=== PATIENT | male | born 1970 | race Caucasian/White ===

== ENCOUNTER 2020-11-26 20:08 | Emergency (ER) | payer OTHER, SELFPAY ==
--- NOTE | ~2020-11-26 | XR_ITS ---
EXAMINATION: CHEST X-RAY CLINICAL INFORMATION: Chest pain COMPARISON: None TECHNIQUE: Frontal view of the chest was obtained. FINDINGS: Cardiac silhouette is mildly enlarged. Lungs are mildly hypoinflated. There is no lobar consolidation. No pleural effusion or pneumothorax. Minimal dependent atelectasis. No gross osseous abnormality. XR/XR chest 1V IMPRESSION: No acute pulmonary pathology.
[2020-11-26 20:37] VITALS: BP 141/86; PULSE 103; PULSE 107; RESP 22; TEMP 37; O2SAT 99; BMI 31.9
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
--- NOTE | 2020-11-26 21:06 | ECG_ITS ---
Test Reason : CHEST PAIN Blood Pressure : / mmHG Vent. Rate : 110 BPM Atrial Rate : 110 BPM P-R Int : 146 ms QRS Dur : 078 ms QT Int : 348 ms P-R-T Axes : 064 042 044 degrees QTc Int : 470 ms Sinus tachycardia Otherwise normal ECG When compared with ECG of 19-MAR-2017 16:02, No significant change was found Referred By: Paz Lainez Electronically Signed By:SAM WARD
[2020-11-26 23:42] VITALS: BP 144/100; PULSE 91; RESP 20; TEMP 37; O2SAT 100
[2020-11-26 23:47] LABS: MANUAL DIFF FLAG NO
--- NOTE | 2020-11-26 23:48 | PC.NURSE ---
LABS WERE DRAWN BY THIS PCT .
[2020-11-26 23:51] LABS: Basophils Absolute Auto 0.1 X10*3/uL (0.0-0.2); Basophils Percent Auto 0.7 % (0-2); Eosinophils Absolute Auto 0.1 X10*3/uL (0.0-0.4); Eosinophils Percent Auto 1.5 % (0-4); Hematocrit 49.8 % (42-52); Hemoglobin 16.8 g/dl (14.0-18.0); Imm Gran Abs Auto 0.02 X10*3/uL (0.00-0.03); Imm Gran Pct Auto 0.3 % (0.0-0.4); Lymphocytes Absolute Auto 2.4 X10*3/uL (1.2-4.9); Lymphocytes Percent Auto 35.3 % (20-40); Mean Corpuscular HGB Conc 33.7 g/dl (31.0-36.0); Mean Corpuscular Hemoglobin 31.5 pg (27.0-33.0); Mean Corpuscular Volume 93.4 fL (80-98); Mean Platelet Volume 9.3 fL (9.4-12.4); Monocytes Absolute Auto 0.5 X10*3/uL (0.1-1.2); Monocytes Percent Auto 7.9 % (2-11); Neutrophils Absolute Auto 3.7 X10*3/uL (2.0-8.3); Neutrophils Percent Auto 54.3 % (45-73); Platelet Count 193 X10*3/uL (160-400); Red Blood Count 5.33 X10*6/uL (4.60-5.80); Red Cell Distribution Width 13.7 % (11.0-16.0); White Blood Count 6.9 X10*3/uL (4.8-10.8)
[2020-11-27 00:12] LABS: Ethanol 144 mg/dL
[2020-11-27 00:16] LABS: Lipase 46 U/L (8-78)
[2020-11-27 00:19] LABS: Alanine Aminotransferase 50 U/L (0-40); Albumin Level 4.1 g/dL (3.5-5.0); Alkaline Phosphatase 102 U/L (39-117); Anion Gap 22 (12-20); Aspartate Amino Transferase 63 U/L (5-37); Bilirubin Total 1.1 mg/dL (0.0-1.0); Blood Urea Nitrogen 7 mg/dL (9-16); Calcium 8.9 mg/dL (8.4-10.2); Carbon Dioxide 20 mmol/L (22-29); Chloride 101 mmol/L (96-108); Creatinine Clr Calc Pharmacy 148.2; Estimated Glomerular Filt Rate > 60; Glucose Random 58 mg/dL (60-115); Potassium 4.3 mmol/L (3.3-5.1); Sodium 139 mmol/L (135-145); Total Protein 7.3 g/dL (6.5-8.0); Troponin-I High Sensitivity 7.7 ng/L (<3.5-35.0)
[2020-11-27] MEDS: 0.9 % Sodium Chloride 1,000 ML 999 ML IV (00:45)
[2020-11-27 01:38] VITALS: BP 139/86; PULSE 93; RESP 17; TEMP 36.6; O2SAT 97
--- NOTE | 2020-11-27 01:40 | PC.NURSE ---
PATIENT BLOOD SUGAR WAS TAKEN BY THIS PCT ,MD SANTOS AWARE OF 68 RESULT PATIENT HAD A CH[employer]EN SAL[employer] SANDWICH AND SOME ORANGE JUICE .,
[2020-11-27 01:47] LABS: Glucose, Whole Blood 68 mg/dL (60-115)
[2020-11-27 02:48] LABS: Glucose, Whole Blood 87 mg/dL (60-115)
[2020-11-27 03:30] LABS: Troponin-I High Sensitivity 5.2 ng/L (<3.5-35.0)
[2020-11-27 04:00] VITALS: BP 145/94; PULSE 108; RESP 16; TEMP 37.1; O2SAT 99
== END 2020-11-27 05:36 | disposition home or self-care (01) ==
PROVIDERS: Emergency Provider Student in an Organized Health Care Education/Training Program
DX: F10.920 Alcohol use, unspecified with intoxication, uncomplicated (principal); Y90.6 Blood alcohol level of 120-199 mg/100 ml; F14.10 Cocaine abuse, uncomplicated; R07.9 Chest pain, unspecified; F17.200 Nicotine dependence, unspecified, uncomplicated
CPT/HCPCS: 36415; 71045; 80053; 80320; 82947; 83690; 84484; 85025; 93005; 96360; 99284; 99285

== ENCOUNTER 2021-02-22 11:53 | Emergency (ER) | payer OTHER, SELFPAY ==
--- NOTE | ~2021-02-22 | XR_ITS ---
EXAMINATION: XR HAND, RIGHT CLINICAL INFORMATION: Punched a wall COMPARISON: None TECHNIQUE: PA, lateral, and oblique views of the right hand. FINDINGS: The bones and soft tissues are normal. No fracture. Alignment is anatomic. Joint spaces are maintained. No erosions or soft tissue calcifications. XR/XR hand RT min 3V IMPRESSION: No fracture.
[2021-02-22 12:00] VITALS: BP 108/72; PULSE 66
--- NOTE | 2021-02-22 12:08 | ED_ITS ---
HPI - Extremity Problem General Chief complaint: Extremity Injury, Upper Stated complaint: hand pain, punched wall days ago Time Seen by Provider: 02/22/21 12:07 Source: patient and EMS Mode of arrival: EMS Limitations: no limitations History of Present Illness HPI Narrative: 50 yo male at [place] for mental health and substance abuse issues, comes to ED after punching a wall with R hand [employer] - sent for xrays Complaint: extremity pain and extremity swelling Onset (ago): day(s) (1) Pain Consistency: constant Location: right and upper extremity (hand) Quality: aching, dull and constant Radiation: none Relieving factors: nothing Exacerbating factors: nothing Associated symptoms: denies other symptoms Context: other (punched a wall) Related Data Home Medications Medication Instructions Recorded Confirmed clonidine HCl 1 tab PO BID 11/26/20 11/26/20 risperidone 1 mg PO DIRECTED 11/26/20 11/26/20 trazodone 2 tab PO BEDTIME 11/26/20 11/26/20 venlafaxine 1 cap PO QAM 11/26/20 11/26/20 Allergies Allergy/AdvReac Type Severity Reaction Status Date / Time morphine [MORPHINE] Allergy Intermediate DIFFICULTY Verified 11/26/20 20:50 BREATHING ibuprofen Allergy Unknown bleeds Verified 11/26/20 20:50 NSAIDS (Non-Steroidal AdvReac Unknown ULCERATIVE Verified 11/26/20 20:50 Anti-Inflamma COLITIS [NSAIDS (NON-STEROIDAL ANTI-INFLAMMA] nsaids Allergy Unknown bleeds Uncoded 11/26/20 20:50 Review of Systems Review of Systems: Constitutional : No Fever, No Chills ENT/Mouth : No Ear Pain, No Hoarseness, No sore throat Eyes: No Eye Pain, No Swelling, No Redness, No Foreign Body Cardiovascular : No Chest Pain, No SOB Respiratory : No Cough, No Dyspnea Gastrointestinal : No Nausea, No Vomiting, No Diarrhea, No abdominal Pain Genitourinary : No Dysuria, No Hematuria Musculoskeletal : positive joint pain, No Myalgias, pos Joint Swelling Skin : No Skin lacerations, No rash Neuro : No Weakness, No Numbness, No Loss of Consciousness, No Dizziness, No Headache Psych : No Anxiety/Panic, pos Depression PMFSH Past Medical History Attestation statement: The following information was validated with the patient. Medical History No known health problems Ulcerative colitis Surgical History No history of previous surgery Social History Social History (Updated 02/22/21 @ 12:13 by Stephany Norris DO) Alcohol intake: current Alcohol intake frequency: 3 or more drinks per day Alcohol type: hard liquor Patient Tobacco Use Status: Current everyday Tobacco user Substance Use Type: Crack/Cocaine and Marijuana Substance Use Frequency: Weekly Advance Directives: No Advance Directives Information Provided: No Physical Exam Vital Signs: Vital Signs: Last Vital Signs Temp 98.6 F 02/22/21 12:09 Pulse 65 02/22/21 12:09 Resp 18 02/22/21 12:09 BP 113/68 02/22/21 12:09 Pulse Ox 93 02/22/21 12:09 Body Mass Index 31.9 Appearance: Alert. Oriented X3. No acute distress. Eyes: Pupils equal, round and reactive to light. ENT: Pharynx normal. Neck: Normal inspection. Neck supple. CVS: Normal heart rate and rhythm. Pulses normal. Respiratory: No respiratory distress. Breath sounds normal. Abdomen: Soft and nontender. Skin: Skin warm and dry. Normal skin color. Normal skin turgor. Extremities: No lower extremity edema. R hand swelling over 3rd and 4th metacarpals, bruising on dorsum and palmar surface of these areas, distal NV intact Neuro: Oriented X 3. No motor deficit. No sensory deficit. Course Course Course Narrative: no fracture seen will place in wrist splint Procedures Orthopedic Splinting/Casting Injury #1: Side: right Upper Extremity Injury Location: hand Upper Extremity Immobilizer: wrist splint MDM - Extremity (Nontraumatic) MDM Narrative Medical decision making narrative: 50 yo male with hx of mental health issues, substance abuse at [place] [facility] detox sent here for xray given pain and swelling after punching a wall, he is NV intact - xray ordered Discharge Plan Discharge Clinical Impression: Sprain and strain of wrist, Contusion Patient Disposition: Xfer Psychiatric Hosp Transfer Details: [place] Instructions: Contusion in Adults (ED), Hand Sprain (ED) Additional Instructions: return to ED for any worsening symptoms or concerns wear splint for 7 days no fractures seen on xray if not better in 1 week repeat xrays Prescriptions: No Action clonidine HCl 0.1 mg tablet 1 tab PO BID RF: 0 trazodone 50 mg tablet 2 tab PO BEDTIME RF: 0 venlafaxine 150 mg capsule,extended release 24hr 1 cap PO QAM RF: 0 risperidone 1 mg tablet 1 mg PO DIRECTED RF: 0
[2021-02-22 12:09] VITALS: BP 113/68; PULSE 65; RESP 18; TEMP 37; O2SAT 93; BMI 31.9
--- NOTE | 2021-02-22 13:41 | PC.NURSE ---
Splint/brace placed to right wrist. Pt aware of plan to discharge. Ambulance booked.
--- NOTE | 2021-02-22 13:45 | PC.NURSE ---
Report given to Bridget dukes at [facility].
== END 2021-02-22 14:57 ==
PROVIDERS: Emergency Provider Emergency Medicine
DX: S60.221A Contusion of right hand, initial encounter (principal); S63.501A Unspecified sprain of right wrist, initial encounter; S66.911A Strain of unspecified muscle, fascia and tendon at wrist and hand level, right hand, initial encounter; F19.10 Other psychoactive substance abuse, uncomplicated; W22.09XA Striking against other stationary object, initial encounter; Y93.9 Activity, unspecified; Y92.9 Unspecified place or not applicable; Y99.9 Unspecified external cause status
CPT/HCPCS: 73130; 99285

== ENCOUNTER 2021-10-19 01:36 | Inpatient (IN) | payer OTHER, SELFPAY ==
[2021-10-19] VITALS (7 sets, daily range): BP systolic 118–150; BP diastolic 78–88; PULSE 93–103; RESP 18–20; TEMP 36.7–37.1; O2SAT 96–98; BMI 27.4
--- NOTE | 2021-10-19 | ECG_ITS ---
Test Reason : MEDICAL CLEARANCE Blood Pressure : / mmHG Vent. Rate : 100 BPM Atrial Rate : 100 BPM P-R Int : 156 ms QRS Dur : 080 ms QT Int : 336 ms P-R-T Axes : 065 064 048 degrees QTc Int : 433 ms Normal sinus rhythm Normal ECG When compared with ECG of 26-NOV-2020 20:22, No significant change was found Referred By: Sejal Friedman Electronically Signed By:Sam Perez
[2021-10-19 02:10] LABS: Glucose, Whole Blood 179 mg/dL (60-115)
[2021-10-19] MEDS: LORazepam 1 MG TABLET 2 MG PO (02:19)
[2021-10-19 02:23] LABS: COVID-19 Test Negative (Negative); IDNOW Serial# 16C4AD1C
[2021-10-19 02:25] LABS: MANUAL DIFF FLAG NO
[2021-10-19 02:26] LABS: Basophils Absolute Auto 0.1 X10*3/uL (0.0-0.2); Basophils Percent Auto 0.6 % (0-2); Eosinophils Absolute Auto 0.1 X10*3/uL (0.0-0.4); Eosinophils Percent Auto 1.2 % (0-4); Hemoglobin 16.7 g/dl (14.0-18.0); Imm Gran Abs Auto 0.02 X10*3/uL (0.00-0.03); Imm Gran Pct Auto 0.2 % (0.0-0.4); Lymphocytes Absolute Auto 3.4 X10*3/uL (1.2-4.9); Lymphocytes Percent Auto 34.7 % (20-40); Mean Corpuscular HGB Conc 33.4 g/dl (31.0-36.0); Mean Corpuscular Hemoglobin 27.9 pg (27.0-33.0); Mean Corpuscular Volume 83.5 fL (80.0-98.0); Mean Platelet Volume 9.5 fL (9.4-12.4); Monocytes Absolute Auto 0.6 X10*3/uL (0.1-1.2); Monocytes Percent Auto 5.7 % (2-11); Neutrophils Absolute Auto 5.6 x10*3/uL (2.0-8.3); Neutrophils Percent Auto 57.6 % (45-73); Platelet Count 394 X10*3/uL (160-400); Red Blood Count 5.99 X10*6/uL (4.60-5.80); Red Cell Distribution Width 13.5 % (11.0-16.0); White Blood Count 9.7 X10*3/uL (4.8-10.8)
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
[2021-10-19] MEDS: diphenhydrAMINE HCL 50 MG/ML VIAL IM (02:45)
[2021-10-19] MEDS: Haloperidol Lactate 5 MG/ML VIAL IM (02:45)
[2021-10-19] MEDS: LORazepam 2 MG/ML VIAL IM (02:45)
[2021-10-19 02:50] LABS: Ethanol 254 mg/dL
[2021-10-19 02:53] LABS: Amphetamine Screen Urine Not Detected (Not Detect); Barbiturates, Urine Not Detected (Not Detect); Benzodiazepines Screen Urine Not Detected (Not Detect); Cannabinoid Screen Urine POSITIVE (Not Detect); Cocaine Screen Urine Not Detected (Not Detect); Fentanyl, urine Not Detected (Not Detect); Opiate Screen Urine Not Detected (Not Detect); Phencyclidine Screen Urine Not Detected (Not Detect)
[2021-10-19 02:54] LABS: Alanine Aminotransferase 36 U/L (0-40); Albumin Level 4.3 g/dL (3.5-5.0); Alkaline Phosphatase 105 U/L (39-117); Anion Gap 17 (12-20); Aspartate Amino Transferase 65 U/L (5-37); Bilirubin Direct < 0.2 mg/dL (0.0-0.5); Bilirubin Total 0.3 mg/dL (0.0-1.0); Blood Urea Nitrogen 6 mg/dL (9-16); Calcium 9.5 mg/dL (8.4-10.2); Carbon Dioxide 24 mmol/L (22-29); Chloride 103 mmol/L (96-108); Creatinine Clr Calc Pharmacy 118.9; Estimated Glomerular Filt Rate > 60; Glucose Random 138 mg/dL (60-115); Potassium 3.8 mmol/L (3.3-5.1); Sodium 140 mmol/L (135-145); Total Protein 7.9 g/dL (6.5-8.0)
[2021-10-19 02:56] LABS: Appearance Urine CLEAR; Color Urine YELLOW; Glucose Urine UA NEG (NEG); Leukocyte Esterase Urine NEG (NEG); Nitrite Urine NEG (NEG); Specific Gravity - Urine >= 1.030 (1.005-1.025); Urine Blood NEG (NEG); Urine Ketones 5 MG/DL (NEG); Urine Protein 2+ MG/DL (NEG-TRACE)
[2021-10-19 03:05] LABS: Bacteria Urine 2+ /LPF; Mucus Urine 3+ /LPF; Squamous Epithelial Cell Urine 1+ /LPF
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
--- NOTE | 2021-10-19 07:00 | PC.NURSE ---
Patient currently in bed appears sleeping, no distress observed/reported, will continue to monitor.
--- NOTE | 2021-10-19 07:21 | PC.NURSE ---
patient appears to remain asleep at present respirations are even and unlabored, patient appears in no distress
--- NOTE | 2021-10-19 16:02 | PC.NURSE ---
once patient awakened patient offered food and fluids and vital signswere taken, patient declined
--- NOTE | 2021-10-20 00:34 | PC.NURSE ---
Patient refuses to participate in nursing admission interview/process.
[2021-10-20 09:11] LABS: Estimated Average Glucose 108 mg/dL; Hemoglobin A1c % 5.4 %
[2021-10-20 09:14] LABS: Cholesterol 235 mg/dL; HDL Cholesterol 49 mg/dL; LDL Cholesterol Calculated 158 mg/dl; Magnesium 2.1 mg/dL (1.6-2.6); Triglycerides 143 mg/dL
[2021-10-20 09:27] LABS: Free T4 (Free Thyroxine) 1.09 ng/dL (0.71-1.85)
[2021-10-20 09:40] LABS: Folate 10.2 ng/mL (> or = 4.0); Vitamin B12 346 pg/mL (200-900)
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
[2021-10-20 18:00] VITALS: BP 145/90; PULSE 76; RESP 16; TEMP 36.4; O2SAT 93
[2021-10-20] MEDS: QUEtiapine Fumarate 25 MG TABLET PO (18:03)
[2021-10-20] MEDS: cloNIDine HCL 0.1 MG TABLET PO (20:08)
[2021-10-20] MEDS: hydrOXYzine HCL 25 MG TABLET PO (21:05)
[2021-10-21 06:00] VITALS: BP 140/75; PULSE 88; TEMP 36.6; O2SAT 97
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
[2021-10-21] MEDS: cloNIDine HCL 0.1 MG TABLET PO ×2 (13:24→20:46)
[2021-10-21] MEDS: QUEtiapine Fumarate 25 MG TABLET PO ×2 (13:25→22:44)
[2021-10-21] MEDS: methylPREDNISolone 4 MG TABLET PO (18:36)
[2021-10-21 20:30] VITALS: BP 134/85; PULSE 85
[2021-10-21] MEDS: Valproic Acid 250 MG CAPSULE 500 MG PO (20:43)
[2021-10-22 06:00] VITALS: BP 112/69; PULSE 58; RESP 18; TEMP 36.6; O2SAT 95
[2021-10-22] MEDS: Valproic Acid 250 MG CAPSULE 500 MG PO (08:45)
[2021-10-22 09:06] LABS: Alanine Aminotransferase 23 U/L (0-40); Albumin Level 3.5 g/dL (3.5-5.0); Alkaline Phosphatase 88 U/L (39-117); Aspartate Amino Transferase 24 U/L (5-37); Bilirubin Direct 0.2 mg/dL (0.0-0.5); Bilirubin Total 0.6 mg/dL (0.0-1.0); Total Protein 6.5 g/dL (6.5-8.0)
--- NOTE | 2021-10-22 10:07 | PC.NURSE ---
Pt declining nicotine pacth at this time.
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
[2021-10-22] MEDS: methylPREDNISolone 4 MG TABLET PO (12:51)
== END 2021-10-22 14:40 | disposition home or self-care (01) | DRG 755 ==
LOC: HO.ED 02:45 → HO.PM5 21:59
PROVIDERS: Nurse Practitioner Family; Admitting Provider Clinical Nurse Specialist Psychiatric/Mental Health, Adult; Emergency Provider Emergency Medicine; Visit Provider Psychiatry & Neurology Psychiatry
DX: F43.25 Adjustment disorder with mixed disturbance of emotions and conduct (principal); R45.850 Homicidal ideations; F17.210 Nicotine dependence, cigarettes, uncomplicated; Z20.822 Contact with and (suspected) exposure to COVID-19; Z71.6 Tobacco abuse counseling; Z88.5 Allergy status to narcotic agent; Z88.6 Allergy status to analgesic agent; Z79.899 Other long term (current) drug therapy
CPT/HCPCS: 36415; 80048; 80061; 80076; 80307; 81001; 81003; 82077; 82607; 82746; 82947; 83036; 83735; 84439; 84443; 85025; 87635; 93005; 96372; 99285; J1200; J2060

== ENCOUNTER 2022-03-09 17:31 | Emergency (ER) | payer OTHER, SELFPAY ==
--- NOTE | 2022-03-09 17:45 | ED_ITS ---
HPI - Alcohol General Chief Complaint: ETOH/Substance Use Stated Complaint: etoh Time Seen by Provider: 03/09/22 17:49 Source: patient and EMS Mode of arrival: EMS Limitations: altered mental status History of Present Illness HPI narrative: 51-year-old male presents via EMS for alcohol intoxication. Patient is combative, slurring his words, unable to stand, and unable to answer questions appropriately. He is physically aggressive and unable to be redirected. MD complaint: alcohol intoxication Last drink: Just prior to admission Chronic alcohol use: Yes Previous visits for alcohol intoxication: Yes Recent trauma: No Associated symptoms: denies other symptoms Treatments prior to arrival: none Related Data Previous Rx's Medication Instructions Recorded clonidine HCl 0.1 mg tablet 0.1 mg PO TID 30 days #90 tabs 10/22/21 methylprednisolone 4 mg tablet 4 mg PO DAILY 2 days #2 tabs 10/22/21 quetiapine 50 mg tablet 50 mg PO TID PRN anxiety 30 days 10/22/21 #90 tabs valproic acid 250 mg capsule 500 mg PO BID 30 days #120 caps 10/22/21 Allergies Allergy/AdvReac Type Severity Reaction Status Date / Time morphine [MORPHINE] Allergy Intermediate DIFFICULTY Verified 11/26/20 20:50 BREATHING ibuprofen Allergy Unknown bleeds Verified 11/26/20 20:50 NSAIDS (Non-Steroidal AdvReac Unknown ULCERATIVE Verified 11/26/20 20:50 Anti-Inflamma COLITIS [NSAIDS (NON-STEROIDAL ANTI-INFLAMMA] nsaids Allergy Unknown bleeds Uncoded 11/26/20 20:50 Review of Systems Review of Systems: Yes Unobtainable due to mental status (Alcohol intoxication) [facility] Past Medical History Attestation statement: The following information was validated with the patient. Source: old records reviewed Medical History Adjustment disorder with mixed disturbance of emotions and conduct No known health problems Ulcerative colitis Surgical History No history of previous surgery Social History Social History Household Members: Friend(s) Unable to assess alcohol history related to: Refusing to respond Alcohol intake: current Alcohol intake frequency: 3 or more drinks per day Alcohol type: hard liquor Patient Tobacco Use Status: Tobacco use Unknown Tobacco use type: Cigarette e-Cigarette/Vaping Use: Currently Using Second Hand Smoke Exposure: Yes Use of substances other than those prescribed or required for medical reasons: Unknown Substance Use Type: Marijuana Advance Directives: No Advance Directives Information Provided: No service: No Sexual orientation: Straight/Heterosexual Physical Exam ED Vital Signs: Vital Signs - 24 hr 03/09/22 18:00 03/09/22 21:10 03/10/22 01:36 Temperature 98.0 F 97.4 F Pulse Rate 111 H 86 78 Respiratory Rate 18 16 16 Blood Pressure 142/86 H 97/57 L 121/81 Pulse Oximetry 91 L 95 98 Oxygen Delivery Method Room Air Nasal Cannula Room Air BMI result Body Mass Index 34.9 Appearance: Alert. Inebriated. Belligerent. Combative. Eyes: Pupils equal, round and reactive to light. Sclera nonicteric. ENT: Pharynx normal. Neck: Normal inspection. Neck supple. CVS: Normal heart rate and rhythm. Pulses normal. Respiratory: No respiratory distress. Breath sounds normal. Abdomen: Soft and nontender. Skin: Skin warm and dry. Normal skin color. Normal skin turgor. Extremities: Moves all extremities against resistance. Neuro: No motor deficit. No sensory deficit. Cranial nerves 2-12 intact. Course Course Course Narrative: 51-year-old male presents via EMS for alcohol intoxication. Family called EMS because patient is uncontrollable. Patient has had multiple visits to this facility for alcohol intoxication in the past. Patient is unable to make complete sentences, is slurring olive is words, is verbally aggressive and swearing, trying to hit security and ED personnel. Multiple attempts for redirection, one-to-one also assigned upon patient's presentation to the emergency department. 17:45 Unable to redirect patient. Unable to deescalate. Multiple attempts. Patient is belligerent. Security at bedside multiple times. Patient was combative with EMS. Order for Haldol, Ativan, and Benadryl. 1745. No IM Ativan, diazepam ordered. 01:00 plan of care is to discharge home, metabolized freedom. Patient denies suicidal or homicidal ideation. Patient is not interested in detox. Patient verbalized understanding of plan of care discharge home. MDM - Alcohol Differential Diagnosis Differential diagnosis: Likely alcohol dependence and alcohol intoxication Medical Records Attestation: I reviewed the patient's medical records. Discharge Plan Discharge Clinical Impression: Alcoholic intoxication Patient Disposition: Home, Self-Care Instructions: Alcohol Intoxication (ED) Additional Instructions: Consider drinking less alcohol. Return to the emergency department for any new, concerning, worsening symptoms. Prescriptions: No Action quetiapine 50 mg tablet 50 mg PO TID PRN (Reason: anxiety) 30 Days Qty: 90 0RF valproic acid 250 mg Capsule 500 mg PO BID 30 Days Qty: 120 0RF methylprednisolone 4 mg Tablet 4 mg PO DAILY 2 Days Qty: 2 0RF clonidine HCl 0.1 mg tablet 0.1 mg PO TID 30 Days Qty: 90 0RF Interventions: ED Discharge Assessment Last Done: 03/10/22 03:15 Discharge Date/Time: 03/10/22 03:16
[2022-03-09] MEDS: Haloperidol Lactate 5 MG/ML VIAL IM (17:56)
[2022-03-09] MEDS: diazePAM 10 MG/2 ML CARTRIDGE 2.5 MG IM (17:56)
[2022-03-09] MEDS: diphenhydrAMINE HCL 50 MG/ML VIAL 25 MG IM (17:57)
[2022-03-09 18:00] VITALS: BP 142/86; BP 150/98; PULSE 111; PULSE 119; RESP 18; TEMP 36.7; O2SAT 91; O2SAT 96; BMI 34.9
[2022-03-09 21:10] VITALS: BP 97/57; PULSE 86; RESP 16; TEMP 36.3; O2SAT 95
[2022-03-10 01:36] VITALS: BP 121/81; PULSE 78; RESP 16; O2SAT 98
--- NOTE | 2022-03-10 03:13 | PC.NURSE ---
I assumed nursing care of Adolfo at 1900. At that time he was asleep with a 1:1 at bedside due to persistent hypoxia and the need to be frequently aroused in order to maintain sat's. The pt has mostly been sleeping since I arrived. At approximately 2100 the 1:1 was D/C'd as the pt was able to maintain room air sat's of 95% or better and was wakeful and appropriate when aroused verbally. he has been discharged at this time. Prior to DC he took PO fluids and was able to ambulate to and from the bathroom independently and with steady gait. Prior to DC the pt was able to obtain a ride home from a friend and was escrted out of the main ED to the waiting room where he will await his ride. He verbalized an understanding of all DC orders and ambulated out of the ED independently and with steady gait.
== END 2022-03-10 03:16 | disposition home or self-care (01) ==
PROVIDERS: Emergency Provider Emergency Medicine
DX: F10.129 Alcohol abuse with intoxication, unspecified (principal); F17.210 Nicotine dependence, cigarettes, uncomplicated; Z71.6 Tobacco abuse counseling; Z79.899 Other long term (current) drug therapy
CPT/HCPCS: 96372; 99284; 99285; J1200; J3360

== ENCOUNTER 2022-10-11 01:20 | Emergency (ER) | payer OTHER, SELFPAY ==
[2022-10-11 01:26] VITALS: BMI 37.7
[2022-10-11 01:39] VITALS: BP 164/100; PULSE 119; RESP 19; TEMP 37.3; O2SAT 93
[2022-10-11 02:24] LABS: Appearance Urine Cloudy; Color Urine Dark Yellow; Glucose Urine UA Negative (Negative); Leukocyte Esterase Urine Negative (Negative); Nitrite Urine Negative (Negative); PH 5.5 (5.0-9.0); Specific Gravity - Urine >= 1.030 (1.005-1.025); UMIC TRIGGER UA YES; Urine Blood Negative (Negative); Urine Ketones Trace mg/dL (Negative); Urine Protein 300 (3+) mg/dL (Neg-Trace)
[2022-10-11 02:27] LABS: COVID-19 Test Negative (Negative); IDNOW Serial# BCCEAD1C
[2022-10-11 02:29] LABS: Amphetamine Screen Urine Not Detected (Not Detect); Barbiturates, Urine Not Detected (Not Detect); Benzodiazepines Screen Urine Not Detected (Not Detect); Cannabinoid Screen Urine Not Detected (Not Detect); Cocaine Screen Urine Not Detected (Not Detect); Fentanyl, urine Not Detected (Not Detect); Opiate Screen Urine Not Detected (Not Detect); Phencyclidine Screen Urine Not Detected (Not Detect)
[2022-10-11 02:37] LABS: Bacteria Urine None Seen (None Seen); Granular Casts Urine Present; Hyaline Casts Urine >20 /LPF (0-2); RBC Urine 0-2 /HPF (0-2)
[2022-10-11] MEDS: LORazepam 1 MG TABLET 2 MG PO ×5 (02:56→16:53)
[2022-10-11 03:29] LABS: Basophils Absolute Auto 0.1 X10*3/uL (0.0-0.2); Basophils Percent Auto 0.7 % (0-2); Eosinophils Absolute Auto 0.1 X10*3/uL (0.0-0.4); Eosinophils Percent Auto 0.3 % (0-4); Hematocrit 50.6 % (42.0-52.0); Imm Gran Abs Auto 0.09 X10*3/uL (0.00-0.03); Imm Gran Pct Auto 0.6 % (0.0-0.4); Lymphocytes Absolute Auto 2.4 X10*3/uL (1.2-4.9); Lymphocytes Percent Auto 15.9 % (20-40); MANUAL DIFF FLAG NO; Mean Corpuscular HGB Conc 33.6 g/dl (31.0-36.0); Mean Corpuscular Hemoglobin 27.9 pg (27.0-33.0); Mean Corpuscular Volume 83.1 fL (80.0-98.0); Mean Platelet Volume 8.9 fL (9.4-12.4); Monocytes Absolute Auto 0.8 X10*3/uL (0.1-1.2); Neutrophils Absolute Auto 11.9 x10*3/uL (2.0-8.3); Neutrophils Percent Auto 77.5 % (45-73); Platelet Count 433 X10*3/uL (160-400); Red Blood Count 6.09 X10*6/uL (4.60-5.80); Red Cell Distribution Width 17.7 % (11.0-16.0); White Blood Count 15.4 X10*3/uL (4.8-10.8)
[2022-10-11 03:48] LABS: Ethanol 178 mg/dL
[2022-10-11 03:52] LABS: Alanine Aminotransferase 26 U/L (0-40); Albumin Level 4.2 g/dL (3.5-5.0); Alkaline Phosphatase 128 U/L (39-117); Anion Gap 19 (12-20); Aspartate Amino Transferase 30 U/L (5-37); Bilirubin Total 0.3 mg/dL (0.0-1.0); Blood Urea Nitrogen 10 mg/dL (9-16); Calcium 9.4 mg/dL (8.4-10.2); Carbon Dioxide 21 mmol/L (22-29); Chloride 106 mmol/L (96-108); Creatinine Clr Calc Pharmacy 146.4; Estimated Glomerular Filt Rate > 60; Glucose Random 111 mg/dL (60-115); Potassium 4.1 mmol/L (3.3-5.1); Sodium 142 mmol/L (135-145); Total Protein 7.8 g/dL (6.5-8.0)
--- NOTE | 2022-10-11 07:07 | PC.NURSE ---
patient appears to remain asleep at present respirations are even and unlabored patient appears in no distress.
--- NOTE | 2022-10-11 07:49 | ED_ITS ---
HPI - Psych General Chief Complaint: Psychiatric Symptoms Stated Complaint: SI Time Seen by Provider: 10/11/22 01:39 Source: patient Mode of arrival: EMS Limitations: no limitations History of Present Illness HPI Narrative: Patient with history of PTSD chronic alcohol abuse brought by PD after [place] [employer] as he was sitting in his car and commented that he is suicidal very disorganized hearing voices. Patient supposed to be on Depakote but he has not filled the medication since 08/11 patient denies any alcohol use but smell of EtOH Related Data Home Medications Medication Instructions Recorded Confirmed cholecalciferol (vitamin D3) 25 1 tab PO DAILY 10/11/22 10/11/22 mcg (1,000 unit) tablet (Vitamin D3) clonidine HCl 0.1 mg tablet 1 tab PO TID 10/11/22 10/11/22 folic acid 1 mg tablet 1 tab PO DAILY 10/11/22 10/11/22 gabapentin 300 mg capsule 1 cap PO TID 10/11/22 10/11/22 multivitamin-iron 9 mg-folic acid 1 tab PO DAILY 10/11/22 10/11/22 400 mcg-calcium and minerals tablet (Therapeutic-M) thiamine HCl (vitamin B1) 100 mg 2 tab PO DAILY 10/11/22 10/11/22 tablet Allergies Allergy/AdvReac Type Severity Reaction Status Date / Time morphine [MORPHINE] Allergy Intermediate DIFFICULTY Verified 11/26/20 20:50 BREATHING ibuprofen Allergy Unknown bleeds Verified 11/26/20 20:50 NSAIDS (Non-Steroidal AdvReac Unknown ULCERATIVE Verified 11/26/20 20:50 Anti-Inflamma COLITIS [NSAIDS (NON-STEROIDAL ANTI-INFLAMMA] nsaids Allergy Unknown bleeds Uncoded 11/26/20 20:50 Review of Systems Review of Systems: Yes all other systems are reviewed and are negative [facility] Past Medical History Medical History Adjustment disorder with mixed disturbance of emotions and conduct No known health problems Ulcerative colitis Surgical History No history of previous surgery Social History Social History Household Members: Friend(s) Unable to assess alcohol history related to: Refusing to respond Alcohol intake: current Alcohol intake frequency: 3 or more drinks per day Alcohol type: hard liquor Patient Tobacco Use Status: Tobacco use Unknown Tobacco use type: Cigarette e-Cigarette/Vaping Use: Currently Using Second Hand Smoke Exposure: Yes Substance Use Type: Marijuana Advance Directives: No Advance Directives Information Provided: Yes service: No Sexual orientation: Straight/Heterosexual Physical Exam Vital Signs: Vital Signs: Last Vital Signs Temp 99.1 F 10/11/22 01:39 Pulse 119 H 10/11/22 01:39 Resp 19 10/11/22 01:39 BP 164/100 H 10/11/22 01:39 Pulse Ox 93 10/11/22 01:39 O2 Del Method 10/11/22 01:39 BMI result Body Mass Index 37.7 Appearance: Alert. Oriented X3. No acute distress. Agitated ETOH+ Eyes: PERRLA, No Nystagmus ENT: Pharynx normal. Oral Mucosa moist Neck: Normal inspection. Neck supple. CVS: Normal heart rate and rhythm. Pulses normal. Respiratory: No respiratory distress. Equal air entry bilateral, no wheezing/rales/rhonchi Abdomen: Soft and nontender. Bowel sounds are present, no mass palpable, no CVA tenderness Skin: Skin warm and dry. Normal skin color. Normal skin turgor. Extremities: No lower extremity edema. No calf tenderness psych: Anxious agitated frequently denies any SI disorganized denies any hallucinations Neuro: Oriented X 3. No motor deficit. No sensory deficit.No cerebellar signs , cranial nerves II-XII intact Medications Administered Discontinued Medications Generic Name Dose Route Start Last Admin Trade Name Freq PRN Reason Stop Dose Admin Lorazepam 2 mg 10/11/22 02:50 10/11/22 02:56 Lorazepam 1 Mg Tablet PO 10/11/22 02:51 2 mg ONCE ONE Administration Medical Decision Making Medical Decision Making [facility] Narrative: Patient with alcohol abuse with increased agitation ETOH level of 168. Will get care team involved for evaluation also likely patient not taking his Depakote Lab Data [facility] Lab Attestation statement: I reviewed the patient's lab results. 10/11/22 03:23 10/11/22 03:23 Labs: Lab Results 10/11/22 10/11/22 10/11/22 Range/Units 02:01 02:09 02:09 WBC (4.8-10.8) X10*3/uL RBC (4.60-5.80) X10*6/uL Hgb (14.0-18.0) g/dl Hct (42.0-52.0) % MCV (80.0-98.0) fL MCH (27.0-33.0) pg MCHC (31.0-36.0) g/dl RDW (11.0-16.0) % Plt Count (160-400) X10*3/uL MPV (9.4-12.4) fL Immature Gran % (Auto) (0.0-0.4) % Neut % (Auto) (45-73) % Lymph % (Auto) (20-40) % [place] % (Auto) (2-11) % Eos % (Auto) (0-4) % Baso % (Auto) (0-2) % Lymph # (Auto) (1.2-4.9) X10*3/uL Wayne # (Auto) (0.1-1.2) X10*3/uL Eos # (Auto) (0.0-0.4) X10*3/uL Baso # (Auto) (0.0-0.2) X10*3/uL Abs Immat Gran (auto) (0.00-0.03) X10*3/uL Absolute Neuts (auto) (2.0-8.3) x10*3/uL Absolute Nucleated RBC (0.0-0.012) X10*3/uL Nucleated RBC % (auto) (0.0-0.2) /100WBC Sodium (135-145) mmol/L Potassium (3.3-5.1) mmol/L Chloride (96-108) mmol/L Carbon Dioxide (22-29) mmol/L Anion Gap (12-20) BUN (9-16) mg/dL Creatinine (0.5-1.4) mg/dL Estim Creat Clear Calc Estimated GFR Random Glucose (60-115) mg/dL Calcium (8.4-10.2) mg/dL Total Bilirubin (0.0-1.0) mg/dL AST (5-37) U/L ALT (0-40) U/L Alkaline Phosphatase (39-117) U/L Total Protein (6.5-8.0) g/dL Albumin (3.5-5.0) g/dL Urine Color Dark Yellow Urine Appearance Cloudy Urine pH 5.5 (5.0-9.0) Ur Specific [place] >= 1.030 H (1.005-1.025) Urine Protein 300 (3+) H (Neg-Trace) mg/dL Urine Glucose (UA) Negative (Negative) mg/dL Urine Ketones Trace (Negative) mg/dL Urine Blood Negative (Negative) Urine Nitrite Negative (Negative) Ur Leukocyte Esterase Negative (Negative) Urine RBC 0-2 (0-2) /HPF Urine WBC 11-20 H (0-5) /HPF Ur Squamous Epith Cells 6-10 (0-2) /HPF Urine Bacteria None Seen (None Seen) Hyaline Casts >20 (0-2) /LPF Granular Casts Present Urine Opiates Screen Not Detected (Not Detect) Urine Fentanyl Screen Not Detected (Not Detect) Ur Barbiturates Screen Not Detected (Not Detect) Ur Phencyclidine Scrn Not Detected (Not Detect) Ur Amphetamines Screen Not Detected (Not Detect) U Benzodiazepines Scrn Not Detected (Not Detect) Urine Cocaine Screen Not Detected (Not Detect) U Marijuana (THC) Screen Not Detected (Not Detect) Ethyl Alcohol mg/dL COVID-19 ([facility]ILIO) Negative (Negative) COVID-19 Clin Com See Note 10/11/22 10/11/22 10/11/22 Range/Units 03:23 03:23 03:23 WBC 15.4 H (4.8-10.8) X10*3/uL RBC 6.09 H (4.60-5.80) X10*6/uL Hgb 17.0 (14.0-18.0) g/dl Hct 50.6 (42.0-52.0) % MCV 83.1 (80.0-98.0) fL MCH 27.9 (27.0-33.0) pg MCHC 33.6 (31.0-36.0) g/dl RDW 17.7 H (11.0-16.0) % Plt Count 433 H (160-400) X10*3/uL MPV 8.9 L (9.4-12.4) fL Immature Gran % (Auto) 0.6 H (0.0-0.4) % Neut % (Auto) 77.5 H (45-73) % Lymph % (Auto) 15.9 L (20-40) % Wayne % (Auto) 5.0 (2-11) % Eos % (Auto) 0.3 (0-4) % Baso % (Auto) 0.7 (0-2) % Lymph # (Auto) 2.4 (1.2-4.9) X10*3/uL Wayne # (Auto) 0.8 (0.1-1.2) X10*3/uL Eos # (Auto) 0.1 (0.0-0.4) X10*3/uL Baso # (Auto) 0.1 (0.0-0.2) X10*3/uL Abs Immat Gran (auto) 0.09 H (0.00-0.03) X10*3/uL Absolute Neuts (auto) 11.9 H (2.0-8.3) x10*3/uL Absolute Nucleated RBC 0.000 (0.0-0.012) X10*3/uL Nucleated RBC % (auto) 0.0 (0.0-0.2) /100WBC Sodium 142 (135-145) mmol/L Potassium 4.1 (3.3-5.1) mmol/L Chloride 106 (96-108) mmol/L Carbon Dioxide 21 L (22-29) mmol/L Anion Gap 19 (12-20) BUN 10 (9-16) mg/dL Creatinine 0.71 (0.5-1.4) mg/dL Estim Creat Clear Calc 146.4 Estimated GFR > 60 Random Glucose 111 (60-115) mg/dL Calcium 9.4 (8.4-10.2) mg/dL Total Bilirubin 0.3 (0.0-1.0) mg/dL AST 30 (5-37) U/L ALT 26 (0-40) U/L Alkaline Phosphatase 128 H (39-117) U/L Total Protein 7.8 (6.5-8.0) g/dL Albumin 4.2 (3.5-5.0) g/dL Urine Color Urine Appearance Urine pH (5.0-9.0) Ur Specific [place] (1.005-1.025) Urine Protein (Neg-Trace) mg/dL Urine Glucose (UA) (Negative) mg/dL Urine Ketones (Negative) mg/dL Urine Blood (Negative) Urine Nitrite (Negative) Ur Leukocyte Esterase (Negative) Urine RBC (0-2) /HPF Urine WBC (0-5) /HPF Ur Squamous Epith Cells (0-2) /HPF Urine Bacteria (None Seen) Hyaline Casts (0-2) /LPF Granular Casts Urine Opiates Screen (Not Detect) Urine Fentanyl Screen (Not Detect) Ur Barbiturates Screen (Not Detect) Ur Phencyclidine Scrn (Not Detect) Ur Amphetamines Screen (Not Detect) U Benzodiazepines Scrn (Not Detect) Urine Cocaine Screen (Not Detect) U Marijuana (THC) Screen (Not Detect) Ethyl Alcohol 178 mg/dL COVID-19 ([facility]) (Negative) COVID-19 Clin Com Discharge Plan Discharge Clinical Impression: Suicidal ideation, Bipolar disorder, Alcohol intoxication Patient Disposition: Still a Patient Prescriptions: No Action clonidine HCl 0.1 mg tablet 1 tab PO TID thiamine HCl (vitamin B1) 100 mg tablet 2 tab PO DAILY gabapentin 300 mg capsule 1 cap PO TID folic acid 1 mg tablet 1 tab PO DAILY cholecalciferol (vitamin D3) [Vitamin D3] 25 mcg (1,000 unit) tablet 1 tab PO DAILY Therapeutic-M 9 mg iron-400 mcg tablet 1 tab PO DAILY Interventions: [place]-Suicide Risk Severity Scale Last Done: 10/11/22 06:48
[2022-10-11 11:39] VITALS: BP 144/95; PULSE 107; RESP 17; TEMP 37.4; O2SAT 94
[2022-10-11 13:24] VITALS: BP 148/96; PULSE 117; RESP 17; TEMP 37.1; O2SAT 92
[2022-10-11 14:53] VITALS: BP 157/90; PULSE 120; RESP 20; TEMP 38; O2SAT 92
[2022-10-11 16:47] VITALS: BP 137/79; PULSE 115; RESP 18; TEMP 36.3; O2SAT 91
[2022-10-11 18:42] VITALS: BP 139/75; PULSE 99; RESP 18; O2SAT 91
[2022-10-11] MEDS: LORazepam 1 MG TABLET PO (18:46)
--- NOTE | 2022-10-12 04:08 | PC.NURSE ---
Patient slept through the night, no distress observed/reported, asymptomatic of withdrawal, awaiting care team assessment, med rec completed/pending provider's approval, will continue to monitor.
[2022-10-12 06:23] VITALS: BP 133/77; PULSE 104; RESP 18; TEMP 36.3; O2SAT 92
[2022-10-12 08:40] VITALS: BP 128/80; PULSE 110; RESP 16; TEMP 36.3; O2SAT 95
[2022-10-12] MEDS: cloNIDine HCL 0.1 MG TABLET PO (09:45)
[2022-10-12] MEDS: Multivitamin TABLET 1 TAB PO (09:45)
[2022-10-12] MEDS: Cholecalciferol (Vitamin D3) 25 MCG TABLET PO (09:45)
[2022-10-12] MEDS: Thiamine HCL 100 MG TABLET 200 MG PO (09:45)
[2022-10-12] MEDS: Folic Acid 1 MG TABLET PO (09:45)
[2022-10-12] MEDS: Gabapentin 300 MG CAPSULE PO (09:45)
--- NOTE | 2022-10-12 10:13 | PC.NURSE ---
Care team spoke with pt. Awaiting psych consult
[2022-10-12] MEDS: Omeprazole 20 MG CAPSULE.DR PO (12:53)
--- NOTE | 2022-10-12 17:01 | MHC.CARE ---
Seen by CARE team and discharge with community resources.
== END 2022-10-12 13:12 | disposition home or self-care (01) ==
PROVIDERS: Emergency Provider Internal Medicine; PCP Family Medicine
DX: R45.851 Suicidal ideations (principal); F31.9 Bipolar disorder, unspecified; F10.120 Alcohol abuse with intoxication, uncomplicated; R45.1 Restlessness and agitation; Y90.6 Blood alcohol level of 120-199 mg/100 ml; R44.0 Auditory hallucinations; Z20.822 Contact with and (suspected) exposure to COVID-19; F43.10 Post-traumatic stress disorder, unspecified; Z91.14 Patient's other noncompliance with medication regimen
CPT/HCPCS: 36415; 80053; 80307; 81001; 82077; 85025; 87635; 99285; S9485